=== PATIENT | male | born 1995 | race African-American/Black ===

== ENCOUNTER 2019-12-02 19:28 | Emergency (ER) | payer MEDICAID ==
[~2019-12-02] VITALS: Ht 177.8 cm; Wt 73.5 kg
[2019-12-02 19:32] VITALS: BP 97/72
--- NOTE | 2019-12-02 19:37 | NUR ---
PT AMBULATED TO BED #5
--- NOTE | 2019-12-02 19:51 | NUR ---
24 Y/O MALE C/O PT STATES HE FEELS "HE IS TRIPPIN OUT" R/T SCHIZOPHRENIA. PT STATES HE IS NOT COMPLIANT WITH HIS MEDICATION . PT DENIES ANY PAIN. DENIES N/V/D; SKIN IS PINK/WARM/DRY; AAOX4 WITH EVEN AND STEADY GAIT; HR EVEN AND REGULAR; PT DENIES ANY FEVER, CP, SOB, OR COUGH AT THIS TIME; PATIENT STATES PAIN OF 0/10 AT THIS TIME; VSS; PATIENT POSITIONED FOR COMFORT; HOB ELEVATED; BEDRAILS UP X2; BED DOWN AND LOCKED. PMH: SCHIZOPHRENIA NKA
[2019-12-02] MEDS ORDERED: OLANZapine 5 MG ODT SL ONE (20:00)
--- NOTE | 2019-12-02 20:03 | NUR ---
TELEPSYCH RESULT INITIATED Addendum: 12/02/19 at 2111 by [facility] TELEPSYCH CONSULT INITIATED
[2019-12-02 20:24] LABS: BASOPHILS # (AUTO) 0.2 K/uL (0.00-0.22); BASOPHILS % (AUTO) 2.2 % (0.0-2.0); EOSINOPHILS # (AUTO) 0.9 K/uL (0-0.4); EOSINOPHILS % (AUTO) 11.5 % (0.0-4.0); HEMATOCRIT 44.3 % (36-52); HEMOGLOBIN 14.4 g/dL (12.0-18.0); LYMPHOCYTES # (AUTO) 3.6 K/uL (2.0-11.5); LYMPHOCYTES % (AUTO) 48.4 % (20.5-51.1); MEAN CORPUSCULAR HEMOGLOBIN 27 pg (27-31); MEAN CORPUSCULAR HGB CONC 33 g/dL (33-37); MEAN CORPUSCULAR VOLUME 81.8 fL (80-94); MONOCYTES # (AUTO) 0.4 K/uL (0.8-1.0); MONOCYTES % (AUTO) 5.1 % (1.7-9.3); NEUTROPHILS # (AUTO) 2.5 K/uL (1.8-7.7); NEUTROPHILS % (AUTO) 32.8 % (42.2-75.2); PLATELET COUNT (AUTO) 290 K/uL (140-450); RED BLOOD CELL COUNT(AUTO) 5.42 MIL/uL (4.20-6.10); RED CELL DISTRIBUTION WIDTH 14.9 % (11.6-13.7); WHITE BLOOD COUNT (AUTO) 7.5 K/uL (4.8-10.8)
--- NOTE | 2019-12-02 20:29 | NUR ---
PT STATED CANNOT URINATE YET AND GAVE WATER TO HELP
[2019-12-02 20:38] LABS: ALBUMIN 3.9 g/dL (3.4-5.0); ASPARTATE AMINOTRANSFERASE 17 U/L (15-37); CHLORIDE 105 mmol/L (98-107); CREATININE 1.1 mg/dL (0.6-1.3); GFR ARICAN-AMERICAN 105 mL/min (>90); GLUCOSE 68 mg/dL (74-106); SODIUM SERUM 144 mmol/L (136-145); TOTAL BILIRUBIN 0.4 mg/dL (0.0-1.0); UREA NITROGEN, BLOOD 14 mg/dL (7-18)
--- NOTE | 2019-12-02 20:39 | NUR ---
TRIED TO OBTAIN URINE SAMPLE FROM PT AND HE STILL STATES HE CANNOT URINATE AFTER BEING GIVEN 4 GLASSES OF WATER
--- NOTE | 2019-12-02 20:48 | NUR ---
INFORMED PT STILL UNABLE TO PROVIDE URINE SAMPLE AFTER COUNTLESS TIMES. NO NEW ORDERS AT THIS TIME.
--- NOTE | 2019-12-02 21:51 | NUR ---
PT RESTING IN BED IN POSITION OF COMFORT, BED LOW AND LOCKED, 2 SDIERAILS UP, VSS, WILL CONTINUE TO MONITOR.
--- NOTE | 2019-12-02 22:09 | NUR ---
AT BEDSIDE TALING WITH TELE PSYCH
--- NOTE | 2019-12-02 22:30 | NUR ---
PT STILL NOT PROVIDING URINE SAMPLE
--- NOTE | 2019-12-02 22:31 | NUR ---
PT RESTING IN BED IN POSITION OF COMFORT, BED LOW AND LOCKED, 2 SDIERAILS UP, VSS, WILL CONTINUE TO MONITOR.
--- NOTE | 2019-12-02 23:51 | NUR ---
PT ASLEEP IN BED IN POSITION OF COMFORT, BED LOW AND LOCKED, 2 SDIERAILS UP, VSS, WILL CONTINUE TO MONITOR.
--- NOTE | 2019-12-03 01:02 | NUR ---
OBTAINED URINE SAMPLE AND WALKED IT TO THE LAB
--- NOTE | 2019-12-03 01:30 | NUR ---
PT ASLEEP IN BED IN POSITION OF COMFORT, BED LOW AND LOCKED, 2 SDIERAILS UP, VSS, WILL CONTINUE TO MONITOR.
[2019-12-03 02:06] LABS: BARBITURATE, URINE NEGATIVE ng/ml (NEG <=200); BENZODIAZEPINE, URINE NEGATIVE ng/mL (NEG <=200); CANNABINOID, URINE NEGATIVE ng/mL (NEG <=50); COCAINE, URINE NEGATIVE ng/mL (NEG <=300); OPIATE, URINE NEGATIVE ng/mL (NEG <=2000); PHENCYCLIDINE SCREEN,URINE NEGATIVE ng/mL (NEG <=25)
--- NOTE | 2019-12-03 03:19 | NUR ---
PT ASLEEP IN BED IN POSITION OF COMFORT, BED LOW AND LOCKED, 2 SDIERAILS UP, VSS, WILL CONTINUE TO MONITOR.
--- NOTE | 2019-12-03 04:48 | NUR ---
PT ASLEEP IN BED IN POSITION OF COMFORT, BED LOW AND LOCKED, 2 SDIERAILS UP, VSS, WILL CONTINUE TO MONITOR.
--- NOTE | 2019-12-03 06:00 | NUR ---
PT ASLEEP IN BED IN POSITION OF COMFORT, BED LOW AND LOCKED, 2 SDIERAILS UP, VSS, WILL CONTINUE TO MONITOR.
[2019-12-03 06:18] VITALS: BP 106/74
--- NOTE | 2019-12-03 06:18 | NUR ---
Patient discharged with v/s stable. Written and verbal after care instructions given and explained. Patient alert, oriented and verbalized understanding of instructions. Ambulatory with steady gait. All questions addressed prior to discharge. ID band removed. Patient advised to follow up with PMD. Rx of ZYPREXA given. Patient educated on indication of medication including possible reaction and side effects. Opportunity to ask questions provided and answered.
--- NOTE | 2019-12-03 06:21 | NUR ---
PT WAS GIVEN HOMELESS PACKET, FOOD, BUS PASS, PT ALREADY HAD WEATHER APPROPRIATE CLOTHING.
== END 2019-12-03 06:18 | disposition home or self-care (01) ==
LOC: MED 19:28
DX: F15.10 Other stimulant abuse, uncomplicated (principal); F20.9 Schizophrenia, unspecified; R44.3 Hallucinations, unspecified
CPT/HCPCS: 36415; 80053; 80305; 85025; 99285; G0482